=== PATIENT | female | born 1955 | race Caucasian/White ===

== ENCOUNTER 2017-12-29 15:25 | Emergency (ER) | payer MEDICARE, OTHER ==
[~2017-12-29] VITALS: Ht 175.3 cm; Wt 107.0 kg
[2017-12-29 15:43] LABS: BASOPHILS ABSOLUTE AUTO 0.02 K/mm3 (0.00-0.23); BASOPHILS PERCENT AUTO 0 % (0-2); EOSINOPHILS PERCENT AUTO 1 % (0-6); Hematocrit 38.8 % (33.0-51.0); Hemoglobin 12.4 g/dL (11.5-16.0); IMMATURE GRAN ABSOLUTE AUTO 0.03 K/mm3 (0.00-0.10); IMMATURE GRAN PERCENT AUTO 0 % (0-1); LYMPHOCYTES ABSOLUTE AUTO 1.66 K/mm3 (0.84-5.20); LYMPHOCYTES PERCENT AUTO 17 % (21-46); MONOCYTES ABSOLUTE AUTO 0.57 K/mm3 (0.16-1.47); MONOCYTES PERCENT AUTO 6 % (4-13); Mean Corpuscular HGB 29.5 pg (26.0-34.0); Mean Corpuscular Volume 92 fL (80-100); Mean Platelet Volume 12.6 fL (9.1-12.4); NEUTROPHILS ABSOLUTE AUTO 7.61 K/mm3 (1.96-9.15); NEUTROPHILS PERCENT AUTO 76 % (41-73); Platelet Count 130 K/mm3 (150-400); RDW Coefficient Variation 13.2 % (11.7-14.2); RDW Standard Deviation 44.7 fL (35.1-46.3); White Blood Cell Count 9.99 K/mm3 (4.00-11.30)
[2017-12-29] MEDS ORDERED: LOPE2C PO (15:56)
[2017-12-29] MEDS ORDERED: ASPI325 PO (15:56)
[2017-12-29] MEDS ORDERED: TRAZ100 PO (15:57)
[2017-12-29] MEDS ORDERED: QUET200 PO (15:57)
[2017-12-29] MEDS ORDERED: GABA300 PO (15:57)
[2017-12-29] MEDS ORDERED: ALBU2.5V5 NEB (15:58)
[2017-12-29] MEDS ORDERED: COMBIVENT RESPIM4 GM INH ×2 (15:58→16:38)
[2017-12-29] MEDS ORDERED: SERT100 PO (15:58)
[2017-12-29] MEDS ORDERED: MORP15ER PO (15:58)
[2017-12-29 15:59] LABS: Troponin I <0.015 ng/mL (0.000-0.040)
[2017-12-29] MEDS ORDERED: METF500C PO (15:59)
[2017-12-29] MEDS ORDERED: Ranitidine HCl150 M1 PO (15:59)
[2017-12-29 16:00] LABS: Alanine Aminotransfer (ALT/SGP 33 U/L (12-78); Albumin, Blood 3.5 g/dL (3.4-5.0); Albumin/Globulin Ratio 1.1 (0.8-1.8); Alk Phos 88 U/L (50-136); Anion Gap 6 mmol/L (6-16); Aspartate Aminotrans (AST/SGOT 25 U/L (12-37); Bilirubin, Total 0.6 mg/dL (0.1-1.0); Blood Urea Nitrogen 19 mg/dL (8-24); Bun/Creatinine Ratio 16.8 (12.0-20.0); CO2, Blood 30 mmol/L (21-32); Calcium, Blood 8.7 mg/dL (8.5-10.1); Chloride, Blood 106 mmol/L (98-108); Creatinine, Blood 1.13 mg/dL (0.40-1.00); Globulin, Blood 3.3 g/dL (2.2-4.0); Glomerular Filtration Rate 52 (60-); Glucose, Blood 138 mg/dL (70-99); Sodium, Blood 142 mmol/L (136-145); Total Protein, Blood 6.8 g/dL (6.4-8.2)
[2017-12-29] MEDS ORDERED: CLARITIN10 MG PO (16:04)
[2017-12-29] MEDS ORDERED: CHOL10002 PO (16:05)
[2017-12-29] MEDS ORDERED: Calcium Carbon650 MG PO (16:05)
[2017-12-29] MEDS ORDERED: LEVFLO500 PO (16:36)
[2017-12-29] MEDS ORDERED: Prednisone20 MG PO (16:37)
== END 2017-12-29 17:00 | disposition home or self-care (01) ==
LOC: ER 15:25
PROVIDERS: Emergency Medicine
DX: J44.0 Chronic obstructive pulmonary disease with (acute) lower respiratory infection (principal); J18.9 Pneumonia, unspecified organism; J44.1 Chronic obstructive pulmonary disease with (acute) exacerbation; Z91.030 Bee allergy status; Z88.1 Allergy status to other antibiotic agents; Z79.899 Other long term (current) drug therapy; Z79.82 Long term (current) use of aspirin; Z79.84 Long term (current) use of oral hypoglycemic drugs; Z87.891 Personal history of nicotine dependence
CPT/HCPCS: 71045; 80053; 83880; 84484; 85025; 93005; 93010; 94640; 96374; 99284-25; J2930; L0160